=== PATIENT | male | born 1955 ===

== ENCOUNTER 2022-01-14 10:20 | Outpatient (CLI) | payer OTHER | END 2022-01-14 10:23 | disposition home or self-care (01) | LOC: MRI 10:20 | PROVIDERS: ATTEND Specialist | DX: M25.50 Pain in unspecified joint (principal) | CPT/HCPCS: 73218 ==

== ENCOUNTER 2022-02-01 09:45 | Emergency (ER) | payer OTHER ==
[~2022-02-01] VITALS: Ht 181.6 cm; Wt 121.1 kg
== END 2022-02-01 11:11 | disposition home or self-care (01) ==
LOC: ER 09:45
DX: M25.512 Pain in left shoulder (principal)

== ENCOUNTER 2025-08-08 07:30 | Outpatient (CLI) | payer OTHER | END 2025-08-08 07:54 | disposition home or self-care (01) | LOC: MRI 07:30 | DX: M75.100 Unspecified rotator cuff tear or rupture of unspecified shoulder, not specified as traumatic (principal); H66.012 Acute suppurative otitis media with spontaneous rupture of ear drum, left ear; H92.02 Otalgia, left ear; M25.50 Pain in unspecified joint; R05.9 Cough, unspecified; R07.0 Pain in throat; R51.9 Headache, unspecified; U07.1 COVID-19; Z12.11 Encounter for screening for malignant neoplasm of colon; Z12.5 Encounter for screening for malignant neoplasm of prostate; Z13.220 Encounter for screening for lipoid disorders; Z13.29 Encounter for screening for other suspected endocrine disorder; Z13.83 Encounter for screening for respiratory disorder NEC; R53.81 Other malaise; Z20.822 Contact with and (suspected) exposure to COVID-19; Z76.0 Encounter for issue of repeat prescription; H40.89 Other specified glaucoma; H40.9 Unspecified glaucoma | CPT/HCPCS: 73721 ==

== ENCOUNTER 2025-08-08 08:46 | Outpatient (CLI) | payer OTHER ==
[2025-08-08 10:35] LABS: BASO % 0.2 % (0.1-1.2); EOS # 0.00 (0.04-0.54); EOS % 0.0 % (0.7-7.0); LYMPH # 1.27 (1.18-3.74); LYMPH % 10.9 % (19.3-53.1); MEAN PLATELET VOLUME 9.50 fl (9.4-12.4); MONO # 1.17 (0.24-0.82); MONO % 10.0 % (4.7-12.5); NEUT # 9.14 (1.56-6.13); NEUT % 78.5 % (34.0-71.1); RED CELL DISTRIBUTION WIDTH 13.2 % (11.6-14.4)
[2025-08-08 10:37] LABS: URINE APPEARANCE Clear; URINE BILIRRUBIN Negative (NEGATIVE); URINE BLOOD Trace; URINE COLOR Yellow; URINE GLUCOSE Negative (NEGATIVE); URINE KETONE Negative (NEGATIVE); URINE LEUKOCYTE Trace; URINE NITRATE Negative; URINE PROTEIN Trace (NEGATIVE); URINE UROBILINOGEN 1.0 E.U./dl
[2025-08-08 10:38] LABS: URINE BACTERIA 8.3 uL (0.0-1933); URINE CAST 0.00 uL (0.0-1.40); URINE EPITHELIAL CELLS 1.5 uL (0.0-38.8); URINE RBC 9.8 uL (0.0-20.8); URINE WBC 33.1 uL (0.0-23.2)
[2025-08-08 11:40] LABS: ALT/SGPT 22.0 U/L (12-78); AST/SGOT 10.0 U/L (15-37); BILIRUBIN TOTAL 0.28 mg/dL (0.3-1.2); BUN CREA RATIO 20.0 (7.0-25.0); CHOL HDL RATIO 2.9 (0-5.0); CREATININE SERUM 0.9 mg/dL (0.70-1.30); GFR 83.42; GLOBULINA 3.5 G/DL (2.4-3.5); GLUCOSE FASTING 113.0 mg/dL (65-100); HDL 56.0 mg/dl (40-60); LDL 94.0 mg/dl (0-130); OSMOLALITY SERUM 288.0 MOSM/KG (275-295); TSH 0.39 uIU/mL (0.358-3.74); VLDL 14.0 (0-39)
[2025-08-08 11:43] LABS: PROSTATIC SPECIFIC ANTIGEN 5.73 NG/ML (0.010-4.00)
[2025-08-08 12:56] LABS: RF NEGATIVE (NEGATIVE)
[2025-08-10 06:06] LABS: chla t Negative (Negative); neiss Negative (Negative)
== END 2025-08-08 08:52 | disposition home or self-care (01) ==
LOC: LAB 08:46
DX: R50.9 Fever, unspecified (principal); H61.22 Impacted cerumen, left ear; H66.012 Acute suppurative otitis media with spontaneous rupture of ear drum, left ear; H66.42 Suppurative otitis media, unspecified, left ear; I10 Essential (primary) hypertension; M25.50 Pain in unspecified joint; R05.9 Cough, unspecified; R07.0 Pain in throat; R51.9 Headache, unspecified; U07.1 COVID-19; Z12.11 Encounter for screening for malignant neoplasm of colon; Z12.5 Encounter for screening for malignant neoplasm of prostate; Z13.1 Encounter for screening for diabetes mellitus; Z13.220 Encounter for screening for lipoid disorders; Z13.29 Encounter for screening for other suspected endocrine disorder; Z13.83 Encounter for screening for respiratory disorder NEC; R53.81 Other malaise; Z20.822 Contact with and (suspected) exposure to COVID-19; Z76.0 Encounter for issue of repeat prescription; H40.89 Other specified glaucoma; H40.9 Unspecified glaucoma